=== PATIENT | female | born 1965 | race Caucasian/White ===

== ENCOUNTER 2019-08-10 08:20 | Outpatient (CLI) | payer OTHER | END 2019-08-10 23:59 | disposition home or self-care (01) | LOC: CFH 08:20 | PROVIDERS: ATTEND Family Medicine | DX: Z12.31 Encounter for screening mammogram for malignant neoplasm of breast (principal) | CPT/HCPCS: 76830; 77067 ==

== ENCOUNTER 2020-11-05 11:06 | Outpatient (CLI) | payer BC ==
[2020-11-05] MEDS ORDERED: REGADENOSON 0.4 MG/5 ML SYRINGE ONE (15:33)
== END 2020-11-06 23:59 | disposition home or self-care (01) ==
LOC: CFH 11:06
PROVIDERS: ATTEND Internal Medicine Cardiovascular Disease
DX: I08.2 Rheumatic disorders of both aortic and tricuspid valves (principal); I11.9 Hypertensive heart disease without heart failure; R07.9 Chest pain, unspecified
CPT/HCPCS: 78452; 93017; 93306; A9502; J2785

== ENCOUNTER 2020-12-23 10:00 | Emergency (ER) | payer SELFPAY ==
[~2020-12-23] VITALS: Ht 167.6 cm; Wt 169.6 kg
--- NOTE | 2020-12-23 10:45 | NUR ---
PT STATES AROUND 2100 LAST NIGHT THAT SHE HAD CHEST PAIN 8/10 WITH SOB THAT WENT AWAY WITH MOVING HER RIGHT ARM AROUND. PT STATES HAS HX OF LEAKY VALVE AND HTN. PROVIDER AT BEDSIDE. HOOKED UP TO HEART MONITOR WITH CONTINOUS MONITOR, EKG PREFORMED. BED RAILS UP X2 CALL REMOTE WITHIN REACH.
--- NOTE | 2020-12-23 11:11 | NUR ---
ULTRASOUND GUIDE IV INSERTION PREFORMED AND STARTED IN THE RIGHT UPPER ARM.
[2020-12-23 11:32] LABS: ALANINE AMINOTRANSFERASE 27 U/L (12-78); ALBUMIN 3.3 g/dL (3.4-5.0); ANION GAP 5 mmol/L (5-15); BASOPHILS % (AUTO) 1 % (0-1); CALCIUM 8.7 mg/dL (8.5-10.1); CHLORIDE 105 mmol/L (98-107); CREATININE 0.94 mg/dL (0.55-1.02); EOSINOPHILS % (AUTO) 1 % (1-7); LYMPHOCYTES % (AUTO) 31 % (22-44); MEAN CORPUSCULAR HGB CONC 30.8 g/dL (32.4-35.8); MEAN PLATELET VOLUME 7.5 fL (7.4-10.4); MONOCYTES % (AUTO) 7 % (2-9); NEUTROPHILS % (AUTO) 59 % (42-75); PLATELET COUNT 268 x10^3/uL (130-400); RED BLOOD COUNT 5.06 x10^6/uL (3.82-5.3); RED CELL DISTRIBUTION WIDTH 18.5 % (9.6-15.2)
[2020-12-23 11:36] LABS: ALKALINE PHOSPHATASE 92 U/L (45-117); BILIRUBIN,TOTAL 0.2 mg/dL (0.2-1.0); TOTAL PROTEIN 6.9 g/dL (6.4-8.2); TROPONIN I < 0.015 ng/mL (0.000-0.045)
[2020-12-23] MEDS ORDERED: MORPHINE SULFATE 4 MG/ML, 1ML ONE (13:22)
[2020-12-23 13:29] VITALS: BP 154/78
[2020-12-23] MEDS ORDERED: MORPHINE SULFATE 4 MG/ML, 1ML IVPush ONE (13:30)
--- NOTE | 2020-12-23 13:52 | NUR ---
Pt stated pain significantly went down after being medicated 07/21 on back. Patient given discharge instructions and they have confirmed that they understand the instructions. Patient ambulatory with steady gait. No questions at time of discharge.
== END 2020-12-23 14:01 | disposition home or self-care (01) ==
LOC: ED 12:04
DX: R07.2 Precordial pain (principal); R06.00 Dyspnea, unspecified; R42 Dizziness and giddiness
CPT/HCPCS: 36415; 71045; 80053; 83880; 84484; 85025; 85379; 93005; 96374; 99285; J2270

== ENCOUNTER → 2021-01-15 | Outpatient (CLI) | payer MEDICAID | END | disposition home or self-care (01) | LOC: RAD 11:47 | PROVIDERS: ATTEND Internal Medicine Cardiovascular Disease | DX: R06.02 Shortness of breath (principal) | CPT/HCPCS: 71045; 78582; A9540; A9558 ==

== ENCOUNTER 2021-02-06 08:24 | Day surgery (SDC) | payer MEDICAID ==
[~2021-02-06] VITALS: Ht 167.6 cm; Wt 163.9 kg
[2021-02-06] MEDS ORDERED: AMIT50TA PO (09:57)
[2021-02-06] MEDS ORDERED: DOXA2TAB9 PO (09:59)
[2021-02-06] MEDS ORDERED: FERR324T5 PO (10:00)
[2021-02-06] MEDS ORDERED: GABA600T7 PO (10:01)
[2021-02-06] MEDS ORDERED: LAMO25TA52 PO (10:01)
[2021-02-06] MEDS ORDERED: METF500S5 PO (10:02)
[2021-02-06] MEDS ORDERED: OMEP-110 PO (10:04)
[2021-02-06] MEDS ORDERED: ZIPR80CA2 PO (10:05)
[2021-02-06] MEDS ORDERED: HYDR25TA6 PO (10:06)
[2021-02-06] MEDS ORDERED: TRIA1CAP3 PO (10:07)
[2021-02-06] MEDS ORDERED: VERA120T13 PO (10:08)
[2021-02-06 10:09] VITALS: BP 152/86
[2021-02-06] MEDS ORDERED: MAGNESIUM (10:09)
[2021-02-06] MEDS ORDERED: HEPARIN 1,000 UNITS/ML, 10ML ONE (10:18)
[2021-02-06] MEDS ORDERED: LIDOCAINE-MPF 1%, 5ML ONE (10:18)
[2021-02-06] MEDS ORDERED: MIDAZOLAM 1 MG/ML, 5ML ONE (10:18)
[2021-02-06] MEDS ORDERED: FENTANYL PF 100 MCG/2ML ONE (10:18)
[2021-02-06] MEDS ORDERED: VERAPAMIL 2.5 MG/ML, 2ML ONE (10:18)
[2021-02-06] MEDS ORDERED: DIPHENHYDRAMINE 50 MG/ML, 1ML ONE (10:31)
[2021-02-06 10:35] LABS: BASOPHILS % (AUTO) 0 % (0-1); EOSINOPHILS % (AUTO) 2 % (1-7); LYMPHOCYTES % (AUTO) 29 % (22-44); MEAN CORPUSCULAR HGB CONC 31.1 g/dL (32.4-35.8); MEAN PLATELET VOLUME 7.6 fL (7.4-10.4); MONOCYTES % (AUTO) 6 % (2-9); NEUTROPHILS % (AUTO) 63 % (42-75); PLATELET COUNT 255 x10^3/uL (130-400); RED BLOOD COUNT 4.91 x10^6/uL (3.82-5.3); RED CELL DISTRIBUTION WIDTH 19.1 % (9.6-15.2)
[2021-02-06 10:46] LABS: CALCIUM 8.8 mg/dL (8.5-10.1); CHLORIDE 104 mmol/L (98-107); CREATININE 1.04 mg/dL (0.55-1.02)
[2021-02-06 10:59] LABS: ANION GAP 3 mmol/L (5-15)
[2021-02-06] MEDS ORDERED: IRON SUCROSE COMPLEX 100MG/5ML IV ONE (11:00)
[2021-02-06] MEDS ORDERED: SODIUM CHLORIDE 0.9% 1,000 ML IV SCH (11:00)
[2021-02-06] MEDS ORDERED: FUROSEMIDE 40 MG/4 ML IV ONE (11:30)
[2021-02-06] MEDS ORDERED: FUROSEMIDE 40 MG/4 ML ONE (11:49)
== END 2021-02-06 13:09 | disposition home or self-care (01) ==
LOC: OUT 08:24
PROVIDERS: ATTEND Internal Medicine Cardiovascular Disease
DX: I27.20 Pulmonary hypertension, unspecified (principal); I36.1 Nonrheumatic tricuspid (valve) insufficiency; I20.9 Angina pectoris, unspecified; I10 Essential (primary) hypertension; G47.30 Sleep apnea, unspecified; E66.3 Overweight; Z68.44 Body mass index [BMI] 60.0-69.9, adult; Z79.1 Long term (current) use of non-steroidal anti-inflammatories (NSAID); Z79.82 Long term (current) use of aspirin; Z79.84 Long term (current) use of oral hypoglycemic drugs; Z79.899 Other long term (current) drug therapy; Z87.891 Personal history of nicotine dependence; Z88.8 Allergy status to other drugs, medicaments and biological substances
CPT/HCPCS: 36415; 80048; 82803; 85025; 93451; 99156; 99157; C1769; C1894; J1200; J1940; J2250; J3010; J1644